=== PATIENT | female | born 1960 | race American Indian/Alaskan Native ===

== ENCOUNTER 2018-04-22 11:14 | Emergency (ER) | payer OTHER ==
[2018-04-22 11:32] VITALS: BP 183/92
[2018-04-22] MEDS ORDERED: DECADRON IM ONE (11:40)
--- NOTE | 2018-04-22 11:40 | Emergency Department Report ---
ED Rash HPI - HPI Chief Complaint: Allergic Reaction Stated Complaint: ITCHY/EXTREME Time Seen by Provider: 04/22/18 11:39 Duration: 1 week Location: Chest, Back, Abdomen, Upper Extremities, Lower Extremities Suspected Cause: Unknown Rash Symptoms: Yes Itching, No Facial Swelling, No Tongue/Oral Swelling, No Breathing Difficulties, No Choking Sensation, No Wheezing/Dyspnea, No Peeling, No Blistering, No Fever Severity: moderate Other History: Mrs. Head is a 57 yo female with hx of asthma, HTN and dyslipidemia who presents with itching all over for one week. Seen at [facility]. Given two shots and prescribed hydroxyzine. Hydrocortisone cream only provided relief for 15 minutes. No dyspnea. No lip swelling. NO wheezing. NO new exposures. She drove to ER by private auto. ED Review of Systems ROS: Stated complaint: ITCHY/EXTREME Other details as noted in HPI Comment: All other systems reviewed and negative Constitutional: denies: fever, malaise Respiratory: denies: cough Cardiovascular: denies: chest pain ED Past Medical Hx - Past Medical History Previous Medical History?: Yes Hx Hypertension: Yes Hx Arthritis: Yes Hx Asthma: Yes Additional medical history: hypercholesterolemia - Social History Smoking Status: Current Every Day Smoker Substance Use Type: Alcohol - Medications Home Medications: Home Medications Medication Instructions Recorded Confirmed Last Taken Type Metoprolol Tartrate 50 mg PO DAILY 11/26/17 11/26/17 11/25/17 History ALBUTEROL Inhaler(NF) [VENTOLIN 1 puff IH Q4H PRN #30 inha 11/27/17 Unknown Rx Inhaler(NF)] Acetaminophen [Acetaminophen TAB] 650 mg PO Q4H PRN #15 tablet 11/27/17 Unknown Rx Amlodipine/Valsartan/Hcthiazid 1 each PO DAILY #30 11/27/17 11/26/17 11/25/17 Rx [Wynsj-Eujcc-Lckx 10-160-25 mg] Azithromycin [Zithromax Z-ROSA] 1 dose PO DAILY #1 pack 11/27/17 Unknown Rx Ipratropium/Albuterol Sulfate 1 ampul IH Q4HR PRN #30 ampul.neb 11/27/17 Unknown Rx [DUONEB *Not for PRN Use*] Rosuvastatin Calcium 20 mg PO QHS #30 11/27/17 11/26/17 11/25/17 Rx Sodium Bicarbonate 650 mg PO DAILY #30 11/27/17 11/26/17 11/25/17 Rx methylPREDNISolone [Medrol Dose 1 dose PO DAILY #1 pack 11/27/17 Unknown Rx Rosa] Rash Exam - Exam General: Vital signs noted. No distress. Alert and acting appropriately. HEENT: No Periorbital Edema, No Conjuctival Injection, No Chemosis, No Perioral Edema, No Tongue Edema, No Uvular Edema, No Compromised Airway, No Drooling Lungs: Yes Good Air Exchange (Normal Breath Sounds), No Wheezes, No Ronchi, No Stridor, No Cough, No Labored Respirations, No Retractions, No Use of Accessory Muscles, No Other Abnormal Lung Sounds Heart: Yes Regular, No Murmur Skin: No Other (severely dry skin arms legs without rash) Other: Positive: Abdomen Normal, Neurologic Normal, Musculoskeletal Normal ED Course Vital Signs 04/22/18 11:28 Temperature 99.1 F Pulse Rate 108 H Respiratory 20 Rate Blood Pressure 183/92 O2 Sat by Pulse 99 Oximetry ED Medical Decision Making - Medical Decision Making Suspect severe xerosis, home baby oil did not provided relief. rx: prednisone, recommended Eucerin cream or vaseline ointment Critical care attestation.: If time is entered above; I have spent that time in minutes in the direct care of this critically ill patient, excluding procedure time. ED Disposition Clinical Impression: Xerosis of skin, Generalized pruritus Disposition: DC-01 TO HOME OR SELFCARE Is pt being admited?: No Does the pt Need Aspirin: No Condition: Stable Additional Instructions: Please use hydrocortisone cream in addition to petroleum jelly (vaseline) or Eucerin cream to cover entire body. Referrals: [facility] [Outside] - 3-5 Days
== END 2018-04-22 12:05 | disposition home or self-care (01) ==
LOC: ED 11:14
DX: L85.3 Xerosis cutis (principal); L29.8 Other pruritus; I10 Essential (primary) hypertension; M19.90 Unspecified osteoarthritis, unspecified site; F17.200 Nicotine dependence, unspecified, uncomplicated; E78.00 Pure hypercholesterolemia, unspecified; Z79.899 Other long term (current) drug therapy; Z91.040 Latex allergy status
CPT/HCPCS: 96372; 99282; J1100

== ENCOUNTER 2018-09-16 01:56 | Emergency (ER) | payer OTHER ==
[2018-09-16] MEDS ORDERED: TYLENOL PO ONE (02:05)
[2018-09-16] MEDS ORDERED: ULTRAM PO ONE (02:47)
[2018-09-16] MEDS ORDERED: DECADRON IM ONE (02:47)
--- NOTE | 2018-09-16 03:17 | XRay Report ---
PROCEDURE: XR FOOT 2V RT TECHNIQUE: AP and lateral views right foot were obtained. HISTORY: Foot pain COMPARISONS: None FINDINGS: There is no evidence of fracture or dislocation. The soft tissues do not show any acute changes. Ther e are small spurs along the posterior and plantar margins of calcaneus. IMPRESSION: Heel spurs. No acute findings.. This document is electronically signed by Wilfrid Segura MD., September 16 2018 03:15:41 AM ET
--- NOTE | 2018-09-16 04:48 | Emergency Department Report ---
ED Lower Extremity HPI - General Chief Complaint: Extremity Injury, Lower Stated Complaint: EXTREME PAIN IN RIGHT FOOT Time Seen by Provider: 09/16/18 02:45 Source: patient, EMS Mode of arrival: Stretcher Limitations: No Limitations - History of Present Illness Initial Comments: pt is a 58 y/o aaf who presents for right foot pain and aching states she was working today and foot started to aching pt denies fall injury or trauma , states she had very stressful day, on allopurinol , pain described ats 10/04 aching and swelling , pt is ambulatory gait is steady at baseline per patient MD Complaint: other (foot pain ) Onset/Timin -: hour(s) Injury: Ankle: Right Type of Injury: unknown Place: home Severity: moderate Severity scale (0 -10): 5 Improves With: nothing Worsens With: weight bearing, movement, palpation Context: other (Gout ) Associated Symptoms: swelling, able to partially bear weight - Related Data Home Medications Medication Instructions Recorded Confirmed Last Taken Metoprolol Tartrate 50 mg PO DAILY 11/26/17 11/26/17 11/25/17 Previous Rx's Medication Instructions Recorded Last Taken Type ALBUTEROL Inhaler(NF) [VENTOLIN 1 puff IH Q4H PRN #30 inha 11/27/17 Unknown Rx Inhaler(NF)] Acetaminophen [Acetaminophen TAB] 650 mg PO Q4H PRN #15 tablet 11/27/17 Unknown Rx Amlodipine/Valsartan/Hcthiazid 1 each PO DAILY #30 11/27/17 11/25/17 Rx [Sjzhd-Ywkwy-Ecys 10-160-25 mg] Azithromycin [Zithromax Z-ROSA] 1 dose PO DAILY #1 pack 11/27/17 Unknown Rx Ipratropium/Albuterol Sulfate 1 ampul IH Q4HR PRN #30 ampul.neb 11/27/17 Unknown Rx [DUONEB *Not for PRN Use*] Rosuvastatin Calcium 20 mg PO QHS #30 11/27/17 11/25/17 Rx Sodium Bicarbonate 650 mg PO DAILY #30 11/27/17 11/25/17 Rx methylPREDNISolone [Medrol Dose 1 dose PO DAILY #1 pack 11/27/17 Unknown Rx Rosa] Permethrin 60 gm TP ONCE #1 cream..g. 04/22/18 Unknown Rx predniSONE [Deltasone] 3 tab PO QDAY 5 Days #15 tab 04/22/18 Unknown Rx Acetaminophen [Acetaminophen TAB] 1,000 mg PO Q6HR PRN #30 tablet 09/16/18 Unknown Rx predniSONE [Deltasone] 40 mg PO QDAY 5 Days #10 tab 09/16/18 Unknown Rx traMADol [Ultram] 50 mg PO Q6HR PRN #12 tablet 09/16/18 Unknown Rx Allergies Allergy/AdvReac Type Severity Reaction Status Date / Time latex Allergy Hives Verified 04/22/18 11:28 ED Review of Systems ROS: Stated complaint: EXTREME PAIN IN RIGHT FOOT Other details as noted in HPI Constitutional: denies: chills, fever Eyes: denies: eye pain, eye discharge, vision change ENT: denies: ear pain, throat pain Respiratory: denies: cough, shortness of breath, wheezing Cardiovascular: denies: chest pain, palpitations Endocrine: no symptoms reported Gastrointestinal: denies: abdominal pain, nausea, diarrhea Genitourinary: denies: urgency, dysuria, discharge Musculoskeletal: joint swelling, arthralgia, other. denies: back pain Skin: denies: rash, lesions Neurological: denies: headache, weakness, paresthesias Psychiatric: denies: anxiety, depression Hematological/Lymphatic: denies: easy bleeding, easy bruising ED Past Medical Hx - Past Medical History Hx Hypertension: Yes Hx Arthritis: Yes Hx Asthma: Yes Additional medical history: hypercholesterolemia - Social History Smoking Status: Current Every Day Smoker Substance Use Type: Alcohol - Medications Home Medications: Home Medications Medication Instructions Recorded Confirmed Last Taken Type Metoprolol Tartrate 50 mg PO DAILY 11/26/17 11/26/17 11/25/17 History ALBUTEROL Inhaler(NF) [VENTOLIN 1 puff IH Q4H PRN #30 inha 11/27/17 Unknown Rx Inhaler(NF)] Acetaminophen [Acetaminophen TAB] 650 mg PO Q4H PRN #15 tablet 11/27/17 Unknown Rx Amlodipine/Valsartan/Hcthiazid 1 each PO DAILY #30 11/27/17 11/26/17 11/25/17 Rx [Gethj-Esqjr-Cnsx 10-160-25 mg] Azithromycin [Zithromax Z-ROSA] 1 dose PO DAILY #1 pack 11/27/17 Unknown Rx Ipratropium/Albuterol Sulfate 1 ampul IH Q4HR PRN #30 ampul.neb 11/27/17 Unknown Rx [DUONEB *Not for PRN Use*] Rosuvastatin Calcium 20 mg PO QHS #30 11/27/17 11/26/17 11/25/17 Rx Sodium Bicarbonate 650 mg PO DAILY #30 11/27/17 11/26/17 11/25/17 Rx methylPREDNISolone [Medrol Dose 1 dose PO DAILY #1 pack 11/27/17 Unknown Rx Rosa] Permethrin 60 gm TP ONCE #1 cream..g. 04/22/18 Unknown Rx predniSONE [Deltasone] 3 tab PO QDAY 5 Days #15 tab 04/22/18 Unknown Rx Acetaminophen [Acetaminophen TAB] 1,000 mg PO Q6HR PRN #30 tablet 09/16/18 Unknown Rx predniSONE [Deltasone] 40 mg PO QDAY 5 Days #10 tab 09/16/18 Unknown Rx traMADol [Ultram] 50 mg PO Q6HR PRN #12 tablet 09/16/18 Unknown Rx ED Physical Exam - General Limitations: No Limitations General appearance: alert, in no apparent distress - Head Head exam: Present: atraumatic, normocephalic - Eye Eye exam: Present: normal appearance, PERRL, EOMI Pupils: Present: normal accommodation - ENT ENT exam: Present: normal orophraynx, mucous membranes moist, TM's normal bilaterally, normal external ear exam - Neck Neck exam: Present: normal inspection, lymphadenopathy. Absent: tenderness - Respiratory Respiratory exam: Present: normal lung sounds bilaterally. Absent: respiratory distress, rhonchi, chest wall tenderness - Cardiovascular Cardiovascular Exam: Present: regular rate, normal rhythm, irregular rhythm, normal heart sounds. Absent: systolic murmur, diastolic murmur, rubs, gallop - GI/Abdominal GI/Abdominal exam: Present: soft, distended, tenderness, guarding, rebound, normal bowel sounds. Absent: rigid - Rectal Rectal exam: Present: deferred - Extremities Exam Extremities exam: Present: normal inspection - Expanded Lower Extremity Exam Right Ankle exam: Present: full ROM, tenderness, swelling, anterior draw sign. Absent: ecchymosis, deformity, crepidus, dislocation, erythema Foot/Toe exam: Present: full ROM, tenderness, swelling. Absent: abrasion, laceration, ecchymosis, deformity, crepidus, dislocation, erythema, amputation, puncture wound, foreign body, calcaneal tenderness, tenderness at base of 5th metatarsal Neuro vascular tendon exam: Absent: pulse deficit, motor deficit, sensory deficit, tendon deficit - Back Exam Back exam: Present: normal inspection, full ROM, muscle spasm. Absent: tenderness, CVA tenderness (R), CVA tenderness (L), vertebral tenderness, rash noted ED Course Vital Signs 09/16/18 02:03 Temperature 99.1 F Pulse Rate 103 H Respiratory 20 Rate Blood Pressure 196/116 [Right] O2 Sat by Pulse 97 Oximetry ED Lower Extremity MDM - Radiology Data Radiology results: report reviewed, image reviewed heel spurs - Medical Decision Making Xray pos for heel spurs plan: ultram, prednisone, follow up with podiatriy in 2 days pt verbalized agreement and understanding of same , pain id improve pt now toleratinng weight bearing plan Critical care attestation.: If time is entered above; I have spent that time in minutes in the direct care of this critically ill patient, excluding procedure time. ED Disposition Clinical Impression: Heel spur Qualifiers: Laterality: right Qualified Code(s): M77.31 - Calcaneal spur, right foot Arthralgia Qualifiers: Joint pain location: foot Laterality: right Qualified Code(s): M25.571 - Pain in right ankle and joints of right foot Disposition: TO HOME OR SELFCARE Is pt being admited?: No Does the pt Need Aspirin: No Condition: Stable Instructions: Plantar Fasciitis (ED), Capsaicin (On the skin) Prescriptions: Acetaminophen [Acetaminophen TAB] 1,000 mg PO Q6HR PRN #30 tablet PRN Reason: pain predniSONE [Deltasone] 40 mg PO QDAY 5 Days #10 tab traMADol [Ultram] 50 mg PO Q6HR PRN #12 tablet PRN Reason: Pain Referrals: NEYMAR MEJIA MD [Primary Care Provider] - 3-5 Days TREY RODAS MD [Staff Physician] - 3-5 Days Forms: Work/School Release Form(ED) Time of Disposition: 05:42
[2018-09-16] MEDS ORDERED: CATAPRES PO ONE (04:49)
[2018-09-16] MEDS ORDERED: ULTRAM ONE (04:56)
[2018-09-16] MEDS ORDERED: DECADRON ONE (04:56)
[2018-09-16 06:03] VITALS: BP 196/113
== END 2018-09-16 06:00 | disposition home or self-care (01) ==
LOC: ED 01:56
DX: M77.31 Calcaneal spur, right foot (principal); I10 Essential (primary) hypertension; M19.90 Unspecified osteoarthritis, unspecified site; J45.909 Unspecified asthma, uncomplicated; E78.00 Pure hypercholesterolemia, unspecified; Z79.899 Other long term (current) drug therapy; Z91.040 Latex allergy status
CPT/HCPCS: 73620; 96372; 99283; J1100